=== PATIENT | female | born 1965 | race Caucasian/White ===

== ENCOUNTER → 2016-10-17 | Outpatient (CLI) | payer OTHER ==
[~2016-10-17] MED LIST: ALEN5SOL IM; ASPI81TA28 PO; ATV5 PO; CIPR1TAB11 PO; CITA10TA4 PO; CLOB-77 TOP; DIPH-416 PO; DIVA500T5 PO; DIVA500T59 PO; DLN100 PO; DTRSR5 PO; METR-163 PO; ONDA4TAB65 PO; OXYB5TAB74 PO; PRLSR20 PO; VNTHFA/IN INH
[2016-10-17 17:23] LABS: HEMATOCRIT 44.5 % (37-47); MEAN CELL VOLUME 91.6 fL (80-100); MEAN CORPUSCULAR HEMOGLOBIN 31.7 pg (25-34); MEAN CORPUSCULAR HGB CONC 34.6 g/dl (32-36); PLATELET COUNT 517 K/uL (130-400); RED BLOOD COUNT 4.86 M/uL (4.2-5.4); WHITE BLOOD COUNT 14.43 K/uL (4.8-10.8)
[2016-10-17 17:47] LABS: ALT/SGPT 15 U/L (12-78); BLOOD UREA NITROGEN 15 mg/dl (7-18); BUN/CREATININE RATIO 22.8 (10-20); CALCIUM 9.6 mg/dl (8.5-10.1); CARBON DIOXIDE 24 mmol/L (21-32); CHLORIDE 108 mmol/L (98-107); CREATININE 0.67 mg/dl (0.60-1.20); GLUCOSE 78 mg/dl (70-99); POTASSIUM 3.9 mmol/L (3.5-5.1); SODIUM 141 mmol/L (136-145)
[2016-10-17 17:50] LABS: ALKALINE PHOSPHATASE 133 U/L (45-117); AST/SGOT 12 U/L (15-37)
[2016-10-17 17:53] LABS: BASO ABS # 0.13 K/uL (0-0.2); BASOPHIL % 0.9 %; COMPLETE YES; ECHINOCYTES 1+; LYMPH ABS # 2.38 K/uL (1.2-3.4); LYMPHOCYTE % 16.5 %; NEUTROPHILS % 58.8 %; VARIANT LYM ABS # 3.17 K/uL
[2016-10-19 16:33] LABS: MICROSOMAL AB 2 IU/ML (<9)
== END | disposition home or self-care (01) ==
LOC: C.LABBFT 11:48
PROVIDERS: ATTEND Nurse Practitioner
DX: R74.0 Nonspecific elevation of levels of transaminase and lactic acid dehydrogenase [LDH] (principal); D72.829 Elevated white blood cell count, unspecified; E07.9 Disorder of thyroid, unspecified; G40.909 Epilepsy, unspecified, not intractable, without status epilepticus

== ENCOUNTER → 2016-12-20 | Outpatient (CLI) | payer OTHER ==
[2016-12-20 16:05] LABS: THYROID STIMULATING HORMONE 0.405 uIu/ml (0.300-4.500)
== END | disposition home or self-care (01) ==
LOC: C.LAB1850 14:41
PROVIDERS: ATTEND Internal Medicine Endocrinology, Diabetes & Metabolism
DX: E05.90 Thyrotoxicosis, unspecified without thyrotoxic crisis or storm (principal)

== ENCOUNTER → 2016-12-31 | Outpatient (CLI) | payer OTHER ==
[~2016-12-31] MED LIST changes: +DTR/5 PO; -OXYB5TAB74 PO
--- NOTE | 2016-12-31 14:01 | MAMMOGRAPHY REPORT ---
BILATERAL DIGITAL DIAGNOSTIC MAMMOGRAM TOMOSYNTHESIS WITH CAD AND TARGETED BILATERAL ULTRASOUND: 12/31 CLINICAL HISTORY: 51-year-old woman of presents with a lump in her left nipple. She also reports he r left breast was painful. Her doctor felt a second lump in the upper outer quadrant of the left br east. No skin changes, nipple discharge or family history of breast cancer. TECHNIQUE: Bilateral breast tomosynthesis in addition to standard 2D mammography was performed. Curr ent study was also evaluated with a Computer Aided Detection (CAD) system. COMPARISON: Comparison is made to exam dated: 11/05/2006. BREAST COMPOSITION: There are scattered areas of fibroglandular density in both breasts. FINDINGS: Two triangular skin palpable markers overlie the left breast in the upper outer middle to posterior breast, and anterior lower outer periareolar left breast. The parenchymal pattern of the left breast is similar to the 2007 mammogram. No new suspicious mass, developing asymmetry, archite ctural distortion or suspicious calcifications are identified. There is an 8 mm nodular asymmetry in the lateral anterior right breast on tomosynthesis slice 1416 which could represent normal overlapping tissue. The pattern on the 2-D view appears somewhat jeffrey lar to the 2007 mammogram. However, further characterization with ultrasound was performed. No oth er suspicious mass, architectural distortion or cluster of microcalcifications is seen in the right breast. Targeted ultrasound was performed in the left breast over the nipple and in the upper outer quadrant approximate 1:00 axis, 8 cm from the nipple, in the areas of lumps described by the patient. The l eft nipple has a sonographically normal appearance without definite mass within the nipple or in the retroareolar breast. In the left 1:00 breast, 8 cm from the nipple, there is normal fatty tissue w ithout a discrete solid or cystic mass. Within the right lateral breast, there is mild benign duct ectasia in the 9:00 periareolar and retroareolar breast. No evidence of a suspicious solid or cysti c mass. IMPRESSION: ACR BI-RADS CATEGORY 2: BENIGN, TARGETED ULTRASOUND ACR BI-RADS CATEGORY 2: BENIGN 1. There is no suspicious mammographic or targeted sonographic abnormality or evidence of malignanc y within the left nipple and upper outer quadrant of the left breast, in the areas of tenderness and lumps pointed out by the patient. Therefore, clinical follow-up is recommended, as biopsy of a cli nically suspicious mass should not be precluded by negative imaging. 2. An 8 mm nodular asymmetry in the lateral right breast has no suspicious sonographic correlate an d most likely represented normal fibroglandular tissue. 3. Would recommend routine screening mammography in one year, unless there is a new palpable concer n. These results and recommendations were discussed with the patient at the time of the exam. Approximately 10% of breast cancers are not detected with mammography. A negative mammographic repor t should not delay biopsy if a clinically suggestive mass is present. Jaci Aj M.D. ay/:12/31/2016 09:53:01 Decision Analyst: Maria A Joe, [facility] letter sent: Normal 1/2 BI-RADS Code: ACR BI-RADS Category 2: Benign Ultrasound BI-RADS: ACR BI-RADS Category 2: Benign
== END | disposition home or self-care (01) ==
LOC: C.MAMM 08:54
PROVIDERS: ATTEND Nurse Practitioner
DX: N63 Unspecified lump in breast (principal); N64.89 Other specified disorders of breast

== ENCOUNTER → 2017-05-07 | Outpatient (CLI) | payer OTHER ==
[~2017-05-07] MED LIST changes: -DTR/5 PO; +OXYB5TAB74 PO
== END | disposition home or self-care (01) ==
LOC: C.MAMM 08:55
PROVIDERS: ATTEND Internal Medicine
DX: Z78.0 Asymptomatic menopausal state (principal)

== ENCOUNTER → 2017-05-15 | Outpatient (CLI) | payer OTHER ==
[~2017-05-15] MED LIST changes: +OPTIRAY 320 IV PRN
[2017-05-15 16:42] LABS: HEMATOCRIT 43.2 % (37-47); MEAN CELL VOLUME 93.1 fL (80-100); MEAN CORPUSCULAR HEMOGLOBIN 30.4 pg (25-34); MEAN CORPUSCULAR HGB CONC 32.6 g/dl (32-36); MEAN PLATELET VOLUME 10.7 fL (7.4-10.4); PLATELET COUNT 354 K/uL (130-400); RED BLOOD COUNT 4.64 M/uL (4.2-5.4); WHITE BLOOD COUNT 14.61 K/uL (4.8-10.8)
[2017-05-15 16:45] LABS: URINE APPEARANCE CLEAR (CLEAR); URINE COLOR DK YELLOW; URINE EPITHELIAL CELL AUTO >30 /lpf (0-5); URINE NITRITE POS (NEG); URINE PH 5.5 (4.5-7.5); URINE SPECIFIC GRAVITY 1.035 (1.000-1.030); UROBILINOGEN NEG (NEG); ZZUR CULT IF INDIC CLEAN CATCH YES
[2017-05-15 16:46] LABS: MANUAL MICROSCOPIC REQUIRED? NO; REVIEW REQ? NO
[2017-05-15 16:47] LABS: URINE BILIRUBIN NEG (NEG)
[2017-05-15 17:12] LABS: ALT/SGPT 881 U/L (12-78); BLOOD UREA NITROGEN 15 mg/dl (7-18); BUN/CREATININE RATIO 26.2 (10-20); CALCIUM 8.4 mg/dl (8.5-10.1); CARBON DIOXIDE 28 mmol/L (21-32); CHLORIDE 109 mmol/L (98-107); CHOLESTEROL 181 mg/dl (0-200); CREATININE 0.58 mg/dl (0.60-1.20); GLUCOSE 76 mg/dl (70-99); POTASSIUM 3.8 mmol/L (3.5-5.1); SODIUM 142 mmol/L (136-145); TRIGLYCERIDES 133 mg/dl (0-150); VERY LOW DENSITY LIPOPROT CALC 27 mg/dl
[2017-05-15 17:21] LABS: ALB/GLOB RATIO 0.9 (0.9-2); ALKALINE PHOSPHATASE 151 U/L (45-117); AST/SGOT 639 U/L (15-37); CHOLESTEROL/HDL RATIO 6.2; HDL CHOLESTEROL 29 mg/dl; LDL CHOLESTEROL CALCULATED 125 mg/dl; THYROID STIMULATING HORMONE 0.493 uIu/ml (0.300-4.500)
[2017-05-15 17:32] LABS: BASO % 0.8 %; BASO ABS # 0.12 K/uL (0-0.2); COMPLETE YES; EOS % 8.4 %; HOWELL-JOLLY BODIES OCCASIONAL; IG% 0.2 %; LARGE PLATELETS 1+; LYMPH % 37.2 %; LYMPH ABS # 5.43 K/uL (1.2-3.4); NEUT % 41.4 %
--- NOTE | 2017-05-15 18:43 | DIAGNOSTIC IMAGING REPORT ---
ABDOMEN AND PELVIS CT WITH AND WITHOUT IV CONTRAST, UROGRAM PROTOCOL CT DOSE: 1974.30 mGycm HISTORY: GROSS HEMATURIA TECHNIQUE: Multiaxial CT images of the abdomen and pelvis were performed both before and after the use of intravenous contrast to evaluate the urinary system. Maximal intensity projection images were performed at the workstation by the radiologist. A dose lowering technique was utilized adhering to the principles of ALARA. COMPARISON STUDY: Abdomen and pelvis CT 08/21/2016. FINDINGS: No renal or ureteral calculi. No hydronephrosis. No suspicious filling defects seen within the bilateral renal collecting systems, ureters, or bladder. Of note, the bladder is essentially nonopacified. There is a 1.6 cm cyst within the left kidney. The lung bases are essentially clear. No suspicious lytic or blastic osseous lesions. The liver, adrenal glands, and pancreas are unremarkable. No retroperitoneal lymphadenopathy. Prior splenectomy, cholecystectomy, and hysterectomy. No pelvic free fluid. No bowel wall thickening or obstruction. The appendix is surgically absent. IMPRESSION: 1. No renal or ureteral stones. No hydronephrosis. 2. No suspicious filling defects seen within the opacified bilateral renal collecting systems, ureters, or bladder. 3. Postoperative changes as described above. Electronically signed by: Isidoro Sinclair M.D. 05/15/2017 6:42 PM Dictated Date/Time: 05/15/2017 6:34 PM
== END | disposition home or self-care (01) ==
LOC: C.CTS 16:19
PROVIDERS: ATTEND Internal Medicine
DX: R30.0 Dysuria (principal); D72.829 Elevated white blood cell count, unspecified; E05.90 Thyrotoxicosis, unspecified without thyrotoxic crisis or storm; G40.909 Epilepsy, unspecified, not intractable, without status epilepticus; E78.5 Hyperlipidemia, unspecified; R31.0 Gross hematuria; M81.0 Age-related osteoporosis without current pathological fracture

== ENCOUNTER 2017-05-16 11:06 | Inpatient (IN) | payer OTHER ==
[~2017-05-16] VITALS: Ht 170.2 cm; Wt 92.0 kg
[~2017-05-16 11:06] MED LIST changes: -ALEN5SOL IM; -DIVA500T5 PO; -DIVA500T59 PO; -DTRSR5 PO; -ONDA4TAB65 PO; -OPTIRAY 320 IV PRN
[2017-05-16 11:46] LABS: MEAN CELL VOLUME 91.7 fL (80-100); MEAN CORPUSCULAR HEMOGLOBIN 31.9 pg (25-34); MEAN CORPUSCULAR HGB CONC 34.8 g/dl (32-36); MEAN PLATELET VOLUME 10.9 fL (7.4-10.4); PLATELET COUNT 335 K/uL (130-400); WHITE BLOOD COUNT 14.63 K/uL (4.8-10.8)
[2017-05-16 12:05] LABS: BUN/CREATININE RATIO 29.4 (10-20); CALCIUM 8.9 mg/dl (8.5-10.1); CREATININE 0.5 mg/dl (0.60-1.20); POTASSIUM 4.3 mmol/L (3.5-5.1)
[2017-05-16 12:08] LABS: ALB/GLOB RATIO 0.8 (0.9-2)
--- NOTE | 2017-05-16 12:18 | EMERGENCY ROOM VISIT NOTE ---
History Report prepared by Carmelo: Emi Elizondo Under the Supervision of: Dr. Jasmeet Ortiz M.D. First contact with patient: 11:36 Chief Complaint: ABNORMAL LABS Stated Complaint: HIGH LIVER History of Present Illness The patient is a 52 year old female who presents to the Emergency Room with complaints of abnormal lab results. The patient reports that her liver enzymes are high and that they are higher today than they were yesterday. She also reports right flank pain and blood in her urine. The patient has a history of a splenectomy and cholecystectomy. Source of History: patient Onset: today Position: other (global) Quality: other (abnormal lab results ) Timing: constant Associated Symptoms: + abdominal pain (right flank pain ), + urinary symptoms (blood in urine ) Review of Systems See HPI for pertinent positives & negatives. A total of 10 systems reviewed and were otherwise negative. Past Medical & Surgical Medical Problems: (1) Intractable nausea and vomiting (2) Leukocytosis (3) Transaminitis Surgical Problems: (1) History of appendectomy (2) History of cholecystectomy (3) History of splenectomy Family History Cancer Diabetes mellitus Gallbladder disease Heart disease Social History Smoking Status: Current Every Day Smoker Alcohol Use: occasionally Drug Use: none Marital Status: single Housing Status: lives with family Occupation Status: unemployed Current/Historical Medications Scheduled Alendronate Sodium (Alendronate Sodium), 70 MG IM WK Aspirin (Aspirin Ec), 81 MG PO DAILY Citalopram Hydrobromide (Citalopram Hydrobromide), 10 MG PO DAILY Clobetasol Propionate (Temovate), 1 APPLN TOP BID Divalproex Sodium (Depakote Delay Rel), 500 MG PO BID Omeprazole (Prilosec), 20 MG PO DAILY Oxybutynin Chloride (Oxybutynin Chloride ER), 5 MG PO HS Scheduled PRN Albuterol Hfa (Ventolin Hfa), 2-4 PUFFS INH Q4H PRN for SOB/Wheezing Diphenoxylate/Atropine (Lomotil), 1 TAB PO QID PRN for Diarrhea Lorazepam (Ativan *), 0.5 MG PO DAILY PRN for Anxiety Ondansetron Hcl (Zofran), 1 TAB PO Q6H PRN for Nausea Allergies Coded Allergies: Oxycodone (Verified Allergy, Mild, 08/22/16) Physical Exam Vital Signs Date Time Temp Pulse Resp B/P (MAP) Pulse Ox O2 Delivery O2 Flow Rate FiO2 05/16/17 14:06 62 16 89/47 94 Room Air 79/50 05/16/17 12:33 73 16 94/66 95 Room Air 05/16/17 11:12 36.7 76 16 108/75 93 Room Air Physical Exam GENERAL: Patient is a healthy-appearing well-nourished female HEAD: Normocephalic atraumatic EYES: Ocular movements intact pupils equal and react to light OROPHARYNX mucous membranes are moist no exudates present no erythema or edema present NECK: Supple no nuchal rigidity CHEST: Good equal expansion LUNGS: Clear and equal to auscultation CARDIAC: Normal S1 and S2 ABDOMEN: RUQ tenderness. BACK: No CVA tenderness EXTREMITIES: No pain upon palpation normal muscle strength in all groups no clubbing cyanosis or edema NEURO: Patient is following commands and answering questions appropriately. Alert and oriented x3 Cranial Nerves 2-12 grossly intact Medical Decision & Procedures Laboratory Results 05/16/17 11:30 Test 05/16/17 11:30 05/16/17 13:59 Neutrophils % (Manual) 36.8 % Lymphocytes % (Manual) 14.9 % Variant Lymphocytes % (manual) 22.8 % Monocytes % (Manual) 14.0 % Eosinophils % (Manual) 8.8 % Basophils % (Manual) 1.8 % Myelocytes % 0.9 % Neutrophils # (Manual) 5.38 K/uL (1.4-6.5) Total Absolute Neutrophils 5.38 K/uL (1.4-6.5) Lymphocytes # (Manual) 2.18 K/uL (1.2-3.4) Absolute Variant Lymphocytes 3.34 K/uL Total Absolute Lymphocytes 5.52 K/uL (1.2-3.4) Monocytes # (Manual) 2.05 K/uL (0.11-0.59) Eosinophils # (Manual) 1.29 K/uL (0-0.5) Basophils # (Manual) 0.26 K/uL (0-0.2) Myelocytes # 0.13 K/uL (0-0) Toxic Vacuolation 1+ Shirley-[place] Bodies 1+ Prothrombin Time 11.0 SECONDS (9.0-12.0) Prothromb Time International Ratio 1.0 (0.9-1.1) Anion Gap 4.0 mmol/L (3-11) Est Creatinine Clear Calc Drug Dose 149.2 ml/min Estimated GFR () 129.9 Estimated GFR (Non- 112.1 BUN/Creatinine Ratio 29.4 (10-20) Calcium Level 8.9 mg/dl (8.5-10.1) Ferritin 1174.3 ng/ml (8.0-388.0) Total Bilirubin 0.7 mg/dl (0.2-1) Aspartate Amino Transf (AST/SGOT) 795 U/L (15-37) Alanine Aminotransferase (ALT/SGPT) 971 U/L (12-78) Alkaline Phosphatase 171 U/L (45-117) Total Protein 7.3 gm/dl (6.4-8.2) Albumin 3.2 gm/dl (3.4-5.0) Globulin 4.1 gm/dl (2.5-4.0) Albumin/Globulin Ratio 0.8 (0.9-2) Amylase Level 49 U/L (25-115) Lipase 110 U/L (73-393) Hepatitis C Antibody NEG (NEG) Valproic Acid (Depakene) Level 90 mcg/ml (50-100) Labs reviewed by ED physician. Medications Administered Medications (Trade) Dose Ordered Sig/Wilma Route Start Time Stop Time Status Last Admin Dose Admin Sodium Chloride 1,000 ml @ 999 mls/hr Q1H1M STAT IV 05/16/17 12:25 05/16/17 13:25 DC 05/16/17 12:31 999 MLS/HR Hydromorphone HCl (Dilaudid Inj) 1 mg NOW STAT IV 05/16/17 12:25 05/16/17 12:27 DC 05/16/17 12:32 1 MG Ondansetron HCl (Zofran Inj) 4 mg NOW STAT IV 05/16/17 12:25 05/16/17 12:27 DC 05/16/17 12:31 4 MG ED Course 1215: Past medical records reviewed. The patient was evaluated in room B6. A complete history and physical examination was performed. 1225: Ordered Zofran Inj 4 mg IV, Dilaudid Inj 1 mg IV, Sodium Chloride 1,000 ml @ 999 mls/hr IV. 1308: Upon reexamination the patient is resting. I discussed results and treatment plan with the patient. She verbalizes agreement and understanding. [facility] The patient will be evaluated for further management. Medical Decision Differential diagnosis: Etiologies such as appendicitis, diverticulitis, PUD, biliary pathology, UTI, pancreatitis, obstruction, mesenteric ischemia, aortic pathology, infections, inflammatory bowel disease, renal colic, as well as others were entertained. This is a 52-year-old female that presents emergency Department with elevated liver enzymes. The patient has similar incident last July. I will note her enzymes or even higher today than yesterday. She was sent in by her primary care physician's office. She was seen by gastroenterology last July therefore I consulted with them who asked that the patient be admitted. They will also get an MRI of the liver. An IV was established, the patient was given normal saline bolus, Dilaudid. I did discuss the case with the hospitalist service who agreed to admit the patient. Patient was in agreement with the treatment plan. Medication Reconcilliation Current Medication List: was personally reviewed by me Blood Pressure Screening Patient's blood pressure: Normal blood pressure Consults Time Called: 1245 Consulting Physician: Dr. Garza [facility] Returned Call: 1308 Upon reexamination the patient is resting. I discussed results and treatment plan with the patient. She verbalizes agreement and understanding. [facility] The patient will be evaluated for further management. Impression Primary Impression: Acute hepatitis Scribe Attestation The scribe's documentation has been prepared under my direction and personally reviewed by me in its entirety. I confirm that the note above accurately reflects all work, treatment, procedures, and medical decision making performed by me. Departure Information Dispostion Being Evaluated By Hospitalist Referrals Tad Holt M.D. (PCP) Patient Instructions [facility]
[2017-05-16 12:19] LABS: BASO ABS # 0.26 K/uL (0-0.2); BASOPHIL % 1.8 %; COMPLETE YES; EOSINOPHIL % 8.8 %; HOWELL-JOLLY BODIES 1+; LYMPH ABS # 2.18 K/uL (1.2-3.4); LYMPHOCYTE % 14.9 %; MYELOCYTE % 0.9 %; NEUTROPHILS % 36.8 %; VACUOLIZATION 1+; VARIANT LYM ABS # 3.34 K/uL; VARIANT LYMPHOCYTE % 22.8 %
[2017-05-16] MEDS ORDERED: ONDANSETRON INJ 2 MG/ML 2 ML VIAL IV STA (12:25)
[2017-05-16] MEDS ORDERED: HYDROmorphone INJ 1 MG/ML SYR IV STA (12:25)
[2017-05-16] MEDS ORDERED: SODIUM CHLORIDE 0.9% 1000ML 1,000 ML IV STA ×2 (12:25→14:15)
--- NOTE | 2017-05-16 13:37 | Gastrointestinal Consultation ---
Gastrointestinal Consultation Date of Consultation: May 16, 2017 Attending Physician: Jasmeet Ortiz Consulting Physician: Parul Dang Reason for Consultation: Elevated LFTs History of Present Illness Patient is a 52 year old female referred to the ED by her PCP for elevated LFTs. She presented to her PCP's office yesterday for c/o hematuria, RUQ abd pain though the abd pain had been present per years per pt's report. She also c/ o diarrhea recently. Urine culture grew gram negative bacilli. She had CT abd/ pelvis done which was grossly normal. Labs however showed leukocytosis WBC 14.6 , LFTs are elevated: Tbili normal, AST 795, ALT 971, AP 171. Amylase and Lipase normal. She was thus sent to ED for further w/u. She had previously seen by our GI team last July for elevated LFTs. At that time had abd pain, n/v, diarrhea symptoms and elevated LFTs suspected to be caused by viral hepatitis though CMV, EBV, Parvo, HSV are all normal. She had refused to stay in hospital longer and was eventually discharged to f/u w her PCP. LFTs eventually normalized in September. She said a month ago her Dilantin was changed to Depakote for better neurological symptoms - though no seizures x 9 yrs she was having headaches until Dilantin DC'd. No other new meds. She was prescribed Cipro/Flagyl for the UTI but hasn't started. She denies any dietary changes, sick contact, travel, regular uses of APAP. Smokes 1.5 PPD, denies any marijuana, or other illicit drugs, ETOH abuses. No known family hx of liver diseases or autoimmune diseases. 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 Cholecystectomy Appendectomy Family History Cancer Diabetes mellitus Gallbladder disease Heart disease Social History Smoking Status: Current Every Day Smoker Alcohol Use: occasionally Drug Use: none Marital Status: single Housing Status: lives with family Occupation Status: unemployed Allergies Coded Allergies: Oxycodone (Verified Allergy, Mild, 08/22/16) Current Medications Home Meds and Scripts Medications Dose Route/Sig Max Daily Dose Days Date Category Dose Instructions Flagyl (Metronidazole) 500 Mg Tab 500 Mg PO BID 08/22/16 Reported Cipro (Ciprofloxacin) 250 Mg Tab 500 Mg PO BID 08/22/16 Reported Temovate (Clobetasol Propionate) 0.05 % Cre 1 Appln TOP BID 08/21/16 Reported APPLY TO ARMS AND LEGS, NEEDED. Ventolin Hfa (Albuterol) 200 Puffs/69394 Mcg Aers 2-4 Puffs INH Q4H PRN 08/21/16 Reported Prilosec (Omeprazole) 20 Mg Capcr 20 Mg PO DAILY 08/21/16 Reported Lomotil (Diphenoxylate HCl/Atropine) Tab 1 Tab PO QID PRN 08/21/16 Reported Citalopram Hydrobromide 10 Mg Tab 10 Mg PO DAILY 08/21/16 Reported Aspirin Ec (Aspirin) 81 Mg Tab 81 Mg PO DAILY 08/21/16 Reported Ditropan (Oxybutynin Chloride) 5 Mg Tab 5 Mg PO HS 08/21/16 Reported Ativan * (Lorazepam) 0.5 Mg Tab 0.5 Mg PO DAILY PRN 10/10/11 Reported Dilantin * (Phenytoin Sodium) 100 Mg Ercap 100 Mg PO 5XD 07/20/08 Reported Review of Systems Constitutional: No fever, No chills Respiratory: No cough, No shortness of breath Cardiac: No chest pain Abdomen: + pain (ruq), + diarrhea, No nausea, No vomiting, No GI bleeding Female : + hematuria Endo: No fatigue Skin: No rash, No itch, No jaundice Physical Exam Date Time Temp Pulse Resp B/P (MAP) Pulse Ox O2 Delivery O2 Flow Rate FiO2 05/16/17 12:33 73 16 94/66 95 Room Air 05/16/17 11:12 36.7 76 16 108/75 93 Room Air General Appearance: + obese Eyes: normal inspection, PERRL, EOMI Neck: supple, no JVD, trachea midline Respiratory/Chest: normal breath sounds, no respiratory distress, no accessory muscle use Cardiovascular: regular rate, rhythm, no gallop, no murmur Abdomen: normal bowel sounds, soft, + tenderness (ruq) Extremities: normal inspection, no pedal edema, no calf tenderness Neurologic/Psych: alert, normal mood/affect, oriented x 3 Skin: normal color, no jaundice, no rash Laboratory Results Last 24 Hours Test 05/16/17 11:30 05/16/17 13:08 White Blood Count 14.63 K/uL Red Blood Count 4.80 M/uL Hemoglobin 15.3 g/dL Hematocrit 44.0 % Mean Corpuscular Volume 91.7 fL Mean Corpuscular Hemoglobin 31.9 pg Mean Corpuscular Hemoglobin Concent 34.8 g/dl Platelet Count 335 K/uL Mean Platelet Volume 10.9 fL RDW Standard Deviation 50.7 fL RDW Coefficient of Variation 15.2 % Neutrophils % (Manual) 36.8 % Lymphocytes % (Manual) 14.9 % Variant Lymphocytes % (manual) 22.8 % Monocytes % (Manual) 14.0 % Eosinophils % (Manual) 8.8 % Basophils % (Manual) 1.8 % Myelocytes % 0.9 % Neutrophils # (Manual) 5.38 K/uL Total Absolute Neutrophils 5.38 K/uL Lymphocytes # (Manual) 2.18 K/uL Absolute Variant Lymphocytes 3.34 K/uL Total Absolute Lymphocytes 5.52 K/uL Monocytes # (Manual) 2.05 K/uL Eosinophils # (Manual) 1.29 K/uL Basophils # (Manual) 0.26 K/uL Myelocytes # 0.13 K/uL Toxic Vacuolation 1+ Shirley-[place] Bodies 1+ Sodium Level 139 mmol/L Potassium Level 4.3 mmol/L Chloride Level 108 mmol/L Carbon Dioxide Level 27 mmol/L Anion Gap 4.0 mmol/L Blood Urea Nitrogen 15 mg/dl Creatinine 0.50 mg/dl Est Creatinine Clear Calc Drug Dose 149.2 ml/min Estimated GFR () 129.9 Estimated GFR (Non- 112.1 BUN/Creatinine Ratio 29.4 Random Glucose 83 mg/dl Calcium Level 8.9 mg/dl Ferritin 1174.3 ng/ml Total Bilirubin 0.7 mg/dl Aspartate Amino Transf (AST/SGOT) 795 U/L Alanine Aminotransferase (ALT/SGPT) 971 U/L Alkaline Phosphatase 171 U/L Total Protein 7.3 gm/dl Albumin 3.2 gm/dl Globulin 4.1 gm/dl Albumin/Globulin Ratio 0.8 Amylase Level 49 U/L Lipase 110 U/L Hepatitis C Antibody NEG Impression Patient is a 52 year old female seen for elevated LFTs. Previously had been seen in July for same reason, suspected to have viral hepatitis though CMV, EBV, Parvo serologies negative. 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 She currently has UTI and diarrhea symptoms. Her Dilantin recently switched to Depakote for seizure control ? LFT elevation related to Depakote. Plan - Alpha 1 antitrypsin, ceruloplasmin, SERVANDO, AMA, Anti smooth muscle antibody, Acute hepatitis labs pending. will add Iron screen given elevated Ferritin 1174 , SPEP, celiac ab panel. - RUQ u/s - Stool cx and Cdiff given diarrhea. If negative may try Colestipol/Questran (? bile acid diarrhea given s/p cholecystectomy), Dicyclomine. - Avoid hepatotoxic meds. - Monitor LFTs. Attg addendum: I interviewed and examined pt, reviewed chart and labs. Pt admit with abnl LFT's, prv normal in September, and without prior h/o sig elevation. She recently began Depakote. Her recent onset depakote therapy suggests liver injury related to depakote therapy. Her eosinophilia may also suggest drug induced linver injury, although eosinophilia is not typical for depakote related liver injury. In addition to labs above, would check APAP levels, HCV RNA, ammonia, GGT. Hold depakote; if LFT's cont to rise or if ammonia elevated, will plan IV carnitine.
[2017-05-16] MEDS ORDERED: ACETAMINOPHEN 325 MG TAB PO PRN (14:00)
[2017-05-16] MEDS ORDERED: ALBUTEROL HFA 8 GM INHALER INH PRN (14:00)
[2017-05-16] MEDS ORDERED: ONDANSETRON INJ 2 MG/ML 2 ML VIAL IV PRN (14:00)
[2017-05-16] MEDS ORDERED: LORAZEPAM 0.5 MG TAB PO PRN (14:00)
[2017-05-16] MEDS ORDERED: ONDA4TAB65 PO (14:08)
[2017-05-16] MEDS ORDERED: ALEN5SOL IM (14:08)
[2017-05-16] MEDS ORDERED: DIVA500T59 PO (14:08)
[2017-05-16] MEDS ORDERED: NURSING VERBAL MED ORDER ONE (14:15)
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
[2017-05-16] MEDS ORDERED: DIVA500T5 PO (14:57)
[2017-05-16] MEDS ORDERED: DTRSR5 PO (14:57)
--- NOTE | 2017-05-16 14:58 | DIAGNOSTIC IMAGING REPORT ---
ULTRASOUND RIGHT UPPER QUADRANT ABDOMEN CLINICAL HISTORY: Elevated hepatic transaminases. COMPARISON STUDY: Abdominal CT dated 05/15/2017. TECHNIQUE: Real-time, grayscale, and color flow sonography of the right upper quadrant of the abdomen was performed. Images are reviewed in the transverse and longitudinal planes. FINDINGS: Liver: The liver is normal in size and echotexture. There is mild central intrahepatic biliary ductal dilatation. The main portal vein is patent. Gallbladder: The gallbladder is surgically absent. The common bile duct is dilated, measuring up to 1.2 cm in diameter. This is likely related to previous surgery. Pancreas: Not well visualized due to overlying bowel gas. Right kidney: Survey images of the right kidney demonstrate normal size and echotexture. There is no hydronephrosis. Ascites: None. IMPRESSION: 1. No acute sonographic abnormality is identified in the right upper quadrant noting status post cholecystectomy. 2. The liver is normal in size and echotexture. Electronically signed by: Cliff Bautista M.D. 05/16/2017 2:56 PM Dictated Date/Time: 05/16/2017 2:55 PM
[2017-05-16 16:30] VITALS: BP 92/60; PULSE 60; TEMP 36.4; O2SAT 94
[2017-05-16 17:09] VITALS: BP 92/60; PULSE 60; TEMP 36.4; Ht 170.2 cm; Wt 92.0 kg
[2017-05-16 17:57] LABS: URINE APPEARANCE CLOUDY (CLEAR); URINE COLOR ORANGE; URINE EPITHELIAL CELL AUTO >30 /lpf (0-5); URINE NITRITE POS (NEG); URINE PH 5.5 (4.5-7.5); URINE SPECIFIC GRAVITY 1.029 (1.000-1.030); UROBILINOGEN POS (NEG)
[2017-05-16 18:10] LABS: MANUAL MICROSCOPIC REQUIRED? NO; REVIEW REQ? YES; URINE BILIRUBIN NEG (NEG)
[2017-05-16] MEDS: DIVALPROEX SODIUM 500 MG DELAY RELEASE TAB PO SCH (22:06)
[2017-05-16] MEDS: OXYBUTYNIN CHLORIDE 5 MG TAB PO SCH (22:06)
[2017-05-17 06:13] LABS: BASO % 0.6 %; BASO ABS # 0.07 K/uL (0-0.2); COMPLETE YES; EOS % 10.7 %; HEMATOCRIT 42.1 % (37-47); IG% 0.2 %; LYMPH % 38.5 %; LYMPH ABS # 4.73 K/uL (1.2-3.4); MEAN CELL VOLUME 92.9 fL (80-100); MEAN CORPUSCULAR HGB CONC 34.4 g/dl (32-36); MEAN PLATELET VOLUME 10.8 fL (7.4-10.4); MONO % 10.4 %; NEUT % 39.6 %; PLATELET COUNT 323 K/uL (130-400); RED BLOOD COUNT 4.53 M/uL (4.2-5.4); WHITE BLOOD COUNT 12.27 K/uL (4.8-10.8)
[2017-05-17 06:48] LABS: TOTAL IRON BINDING CAPACITY 336 mcg/dl (250-450)
--- NOTE | 2017-05-17 07:14 | DIAGNOSTIC IMAGING REPORT ---
(RENAL)RETROPERITONEA COMP HISTORY: Hematuria gross hematuria COMPARISON: None. FINDINGS: Right kidney: Maximum dimension 12.6 cm. No evidence for hydronephrosis. Normal corticomedullary differentiation and cortical thickness. Left kidney: Maximum dimension 12.2 cm. No evidence for hydronephrosis. 1.5 cm upper pole cyst. Normal corticomedullary differentiation and cortical thickness. Bladder: No bladder wall thickening. The bilateral ureteral jets were identified. IMPRESSION: Small left renal upper pole cyst. Otherwise negative study The above report was generated using voice recognition software. It may contain grammatical, syntax or spelling errors. Electronically signed by: Saad Andrade M.D. 05/17/2017 7:12 AM Dictated Date/Time: 05/17/2017 7:03 AM
--- NOTE | 2017-05-17 07:25 | DIAGNOSTIC IMAGING REPORT ---
MRCP CLINICAL HISTORY: dilated CBD COMPARISON STUDY: CT scan dated 05/15/2017, biliary ultrasound dated 05/16/2017 FINDINGS: The gallbladder is surgically absent. The common bile duct measures 7 mm. This is not an unexpected finding in a postcholecystectomy patient. No ductal filling defects are visualized. There is no pancreatic ductal dilatation. There is a 17 mm left renal cyst. There is mild perinephric edema. IMPRESSION: 1. Surgically absent gallbladder 2. Mild biliary ductal prominence, a not unexpected finding in a postcholecystectomy patient 3. No pancreatic ductal dilatation 4. No ductal filling defects identified 5. 17 mm left renal cyst. Mild perinephric edema. Electronically signed by: Mayito Mazariegos M.D. 05/17/2017 7:23 AM Dictated Date/Time: 05/17/2017 7:20 AM
[2017-05-17 08:09] VITALS: BP 101/67; PULSE 59; TEMP 36.8; O2SAT 93
[2017-05-17] MEDS: PANTOprazole SOD 40 MG TAB PO SCH (08:23)
[2017-05-17] MEDS: CITALOPRAM 20 MG TAB PO SCH (08:23)
[2017-05-17] MEDS: DIVALPROEX SODIUM 500 MG DELAY RELEASE TAB PO SCH ×2 (08:23→20:40)
[2017-05-17] MEDS ORDERED: ASPIRIN 81 MG ECTAB PO SCH (09:00)
--- NOTE | 2017-05-17 10:54 | Gastroenterology Progress Note ---
Progress Note Date of Service: May 17, 2017 Subjective Pt evaluation today including: conversation w/ patient, physical exam, chart review, lab review, review of studies, review of inpatient medication list Ms. Alva is a 52 yr old female with a seizure disorder (recent change from dilantin to depakote) who was admitted yesterday with and abdominal pain (which resolved yesterday). Elevated LFTs, leukocytosis on admission (yesterday: WBC 14.6: Tbili normal, AST 795, ALT 971, AP 171.) slightly improved today: WBC 12.2 T Bili normal, AST 777, ALT 921, AP 229 Continues with hematuria and cx with > 100k gram neg. Hep B (-); C pending. HSV, Parvovirus, CMV (-) during a similar episode of transaminitis and pain in Jul 2016. US yesterday with 1.2mm bile duct. MRCP very early this morning with 7mmbile duct and no defects. Today pt feels well, asks to eat. Review of Systems Constitutional: No fever Respiratory: No cough Cardiac: No chest pain Abdomen: + pain, + nausea, + vomiting, No diarrhea, No constipation, No GI bleeding, No dysphagia, No odynophagia Female : No dysuria Neuro: No memory loss Psych: No depression symptoms Endo: + fatigue (mild) Skin: No rash, No jaundice Medications Current Inpatient Medications Medications (Trade) Dose Ordered Sig/Wilma Route Start Time Stop Time Status Last Admin Dose Admin Acetaminophen (Tylenol Tab) 650 mg Q4H PRN PO 05/16/17 14:00 06/15/17 13:59 Ondansetron HCl (Zofran Inj) 4 mg Q6H PRN IV 05/16/17 14:00 06/15/17 13:59 Albuterol (Ventolin Hfa Inhaler) use as directed Q4H PRN INH 05/16/17 14:00 06/15/17 13:59 Divalproex Sodium (Depakote Delay Rel Tab) 500 mg BID PO 05/16/17 21:00 06/15/17 20:59 05/17/17 08:23 500 MG Lorazepam (Ativan Tab) 0.5 mg DAILY PRN PO 05/16/17 14:00 06/15/17 13:59 Oxybutynin Chloride (Ditropan Tab) 5 mg HS PO 05/16/17 21:00 06/15/17 20:59 05/16/17 22:06 5 MG Citalopram Hydrobromide (celeXA TAB) 10 mg QAM PO 05/17/17 09:00 06/16/17 08:59 05/17/17 08:23 10 MG Pantoprazole Sodium (Protonix Tab) 40 mg QAM PO 05/17/17 09:00 06/16/17 08:59 05/17/17 08:23 40 MG Objective Vital Signs Date Time Temp Pulse Resp B/P (MAP) Pulse Ox O2 Delivery O2 Flow Rate FiO2 05/17/17 08:09 36.8 59 18 101/67 (78) 93 Room Air 05/17/17 08:00 Room Air 05/17/17 00:00 Room Air 05/16/17 20:00 Room Air 05/16/17 17:09 36.4 60 18 92/60 Room Air 05/16/17 16:30 36.4 60 18 92/60 (71) 94 Room Air 05/16/17 15:56 88 16 131/57 94 05/16/17 15:51 88 16 131/57 94 Room Air 05/16/17 14:06 62 16 89/47 94 Room Air 79/50 05/16/17 12:33 73 16 94/66 95 Room Air 05/16/17 11:12 36.7 76 16 108/75 93 Room Air Physical Exam General Appearance: no apparent distress ENT: pharynx normal Neck: no JVD Respiratory/Chest: lungs clear Cardiovascular: + systolic murmur (2-3/6 murmur loudest at the apex) Abdomen: non tender, soft Extremities: non-tender, no pedal edema Neurologic/Psych: alert, normal mood/affect, oriented x 3 Skin: no jaundice, no rash Laboratory Results Last 24 Hours Test 05/16/17 11:30 05/16/17 13:59 05/16/17 15:50 05/16/17 17:37 White Blood Count 14.63 K/uL Red Blood Count 4.80 M/uL Hemoglobin 15.3 g/dL Hematocrit 44.0 % Mean Corpuscular Volume 91.7 fL Mean Corpuscular Hemoglobin 31.9 pg Mean Corpuscular Hemoglobin Concent 34.8 g/dl Platelet Count 335 K/uL Mean Platelet Volume 10.9 fL RDW Standard Deviation 50.7 fL RDW Coefficient of Variation 15.2 % Neutrophils % (Manual) 36.8 % Lymphocytes % (Manual) 14.9 % Variant Lymphocytes % (manual) 22.8 % Monocytes % (Manual) 14.0 % Eosinophils % (Manual) 8.8 % Basophils % (Manual) 1.8 % Myelocytes % 0.9 % Neutrophils # (Manual) 5.38 K/uL Total Absolute Neutrophils 5.38 K/uL Lymphocytes # (Manual) 2.18 K/uL Absolute Variant Lymphocytes 3.34 K/uL Total Absolute Lymphocytes 5.52 K/uL Monocytes # (Manual) 2.05 K/uL Eosinophils # (Manual) 1.29 K/uL Basophils # (Manual) 0.26 K/uL Myelocytes # 0.13 K/uL Toxic Vacuolation 1+ [place] Bodies 1+ Prothrombin Time 11.0 SECONDS Prothromb Time International Ratio 1.0 Sodium Level 139 mmol/L Potassium Level 4.3 mmol/L Chloride Level 108 mmol/L Carbon Dioxide Level 27 mmol/L Anion Gap 4.0 mmol/L Blood Urea Nitrogen 15 mg/dl Creatinine 0.50 mg/dl Est Creatinine Clear Calc Drug Dose 149.2 ml/min Estimated GFR () 129.9 Estimated GFR (Non- 112.1 BUN/Creatinine Ratio 29.4 Random Glucose 83 mg/dl Calcium Level 8.9 mg/dl Ferritin 1174.3 ng/ml Total Bilirubin 0.7 mg/dl Aspartate Amino Transf (AST/SGOT) 795 U/L Alanine Aminotransferase (ALT/SGPT) 971 U/L Alkaline Phosphatase 171 U/L Total Protein 7.3 gm/dl Albumin 3.2 gm/dl Globulin 4.1 gm/dl Albumin/Globulin Ratio 0.8 Amylase Level 49 U/L Lipase 110 U/L Hepatitis C Antibody NEG Valproic Acid (Depakene) Level 90 mcg/ml Ammonia 37.0 umol/L Urine Color ORANGE Urine Appearance CLOUDY Urine pH 5.5 Urine Specific [place] 1.029 Urine Protein NEG Urine Glucose (UA) NEG Urine Ketones TRACE Urine Occult Blood 1+ Urine Nitrite POS Urine Bilirubin NEG Urine Urobilinogen POS Urine Leukocyte Esterase TRACE Urine WBC (Auto) 1-5 /hpf Urine RBC (Auto) 0-4 /hpf Urine Hyaline Casts (Auto) 0 /lpf Urine Epithelial Cells (Auto) >30 /lpf Urine Bacteria (Auto) 4+ Urine Pathogenic Casts /lpf Test 05/17/17 05:55 05/17/17 06:03 Iron Level 145 mcg/dl Total Iron Binding Capacity 336 mcg/dl Transferrin 275 mg/dl Transferrin % Saturation 38 % White Blood Count 12.27 K/uL Red Blood Count 4.53 M/uL Hemoglobin 14.5 g/dL Hematocrit 42.1 % Mean Corpuscular Volume 92.9 fL Mean Corpuscular Hemoglobin 32.0 pg Mean Corpuscular Hemoglobin Concent 34.4 g/dl Platelet Count 323 K/uL Mean Platelet Volume 10.8 fL Neutrophils (%) (Auto) 39.6 % Lymphocytes (%) (Auto) 38.5 % Monocytes (%) (Auto) 10.4 % Eosinophils (%) (Auto) 10.7 % Basophils (%) (Auto) 0.6 % Neutrophils # (Auto) 4.86 K/uL Lymphocytes # (Auto) 4.73 K/uL Monocytes # (Auto) 1.27 K/uL Eosinophils # (Auto) 1.31 K/uL Basophils # (Auto) 0.07 K/uL RDW Standard Deviation 52.5 fL RDW Coefficient of Variation 15.5 % Immature Granulocyte % (Auto) 0.2 % Immature Granulocyte # (Auto) 0.03 K/uL Total Bilirubin 0.9 mg/dl Direct Bilirubin 0.3 mg/dl Aspartate Amino Transf (AST/SGOT) 777 U/L Alanine Aminotransferase (ALT/SGPT) 921 U/L Alkaline Phosphatase 170 U/L Total Protein 6.4 gm/dl Albumin 2.9 gm/dl Assessment and Plan Ms. Alva is a 52 yr old female with RUQ pain (now resolved), nausea - continues , mild and transaminitis/leukocytosis, both slightly improved. Possible UTI with hematuria, cx >100k gram (-). Plan: 1. Daily LFTs. 2. Eventual EUS 3. Regular diet. Attg addendum: I interveiwed and examined pt, reviewed chart and labs. Pt without new complaint; she is hungry. Labs show stable/mildly improved LFTs. APAP level was not done; dilantin level is not toxic. She has a mild hyperammonemia, without clinic enceph. I suspect dilantin toxicity, although dynamic size of CBD diamater may suggest stone disease or SOD. I think it would be ok to delay carnitine therapy given very mild hyperammonemia. For now , will follow - recommended outpt EUS, but pt wishes to defer. She can be discharged if LFT's cont to improve tomorrow. Please notify us if she is discharged - she should have twice weekly monitoring of LFT's for a few weeks as outpt. ,
[2017-05-17] MEDS ORDERED: AMPICILLIN/SULBACTAM SOD INJ 3,000 MG in SODIUM CHLORIDE 0.9% 100ML 100 ML IV SCH (14:30)
[2017-05-17 15:07] VITALS: BP 95/54; PULSE 68; TEMP 37.1; O2SAT 95
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
[2017-05-17] MEDS: SULFAMETHOXAZOLE/TRIMETHOPRIM DS 800/160MG TAB PO SCH ×2 (16:00→22:35)
[2017-05-17] MEDS: OXYBUTYNIN CHLORIDE 5 MG TAB PO SCH (20:40)
[2017-05-18] VITALS: O2SAT 95
[2017-05-18 00:06] VITALS: BP 120/70; PULSE 55; TEMP 36.7; O2SAT 93
[2017-05-18 07:12] VITALS: BP 110/70; PULSE 66; TEMP 36.7; O2SAT 95
[2017-05-18 07:37] LABS: HEMATOCRIT 41.5 % (37-47); MEAN CORPUSCULAR HEMOGLOBIN 31.8 pg (25-34); MEAN CORPUSCULAR HGB CONC 34.9 g/dl (32-36); MEAN PLATELET VOLUME 11.2 fL (7.4-10.4); PLATELET COUNT 313 K/uL (130-400); RED BLOOD COUNT 4.56 M/uL (4.2-5.4); WHITE BLOOD COUNT 14.21 K/uL (4.8-10.8)
[2017-05-18] MEDS: SULFAMETHOXAZOLE/TRIMETHOPRIM DS 800/160MG TAB PO SCH ×2 (07:41→20:46)
[2017-05-18] MEDS: DIVALPROEX SODIUM 500 MG DELAY RELEASE TAB PO SCH ×2 (07:41→20:45)
[2017-05-18] MEDS: CITALOPRAM 20 MG TAB PO SCH (07:41)
[2017-05-18] MEDS: PANTOprazole SOD 40 MG TAB PO SCH (07:41)
[2017-05-18 08:01] LABS: BUN/CREATININE RATIO 18.5 (10-20); CALCIUM 8.9 mg/dl (8.5-10.1); CREATININE 0.66 mg/dl (0.60-1.20); POTASSIUM 4.2 mmol/L (3.5-5.1)
[2017-05-18 08:29] LABS: BASO % 0.5 %; BASO ABS # 0.07 K/uL (0-0.2); COMPLETE YES; EOS % 9.1 %; HOWELL-JOLLY BODIES 1+; IG% 0.4 %; LYMPH % 41.6 %; LYMPH ABS # 5.91 K/uL (1.2-3.4); NEUT % 36.4 %; POIKILOCYTOSIS PRESENT; TOXIC GRANULATION 1+
--- NOTE | 2017-05-18 11:07 | Gastroenterology Progress Note ---
Progress Note Date of Service: May 18, 2017 Subjective Pt evaluation today including: conversation w/ patient, conversation w/ family No complaints, feeling well, no issues. labs have increased a bit, no signs of liver decompensation Medications Current Inpatient Medications Medications (Trade) Dose Ordered Sig/Wilma Route Start Time Stop Time Status Last Admin Dose Admin Acetaminophen (Tylenol Tab) 650 mg Q4H PRN PO 05/16/17 14:00 06/15/17 13:59 Ondansetron HCl (Zofran Inj) 4 mg Q6H PRN IV 05/16/17 14:00 06/15/17 13:59 Albuterol (Ventolin Hfa Inhaler) use as directed Q4H PRN INH 05/16/17 14:00 06/15/17 13:59 Divalproex Sodium (Depakote Delay Rel Tab) 500 mg BID PO 05/16/17 21:00 06/15/17 20:59 05/18/17 07:41 500 MG Lorazepam (Ativan Tab) 0.5 mg DAILY PRN PO 05/16/17 14:00 06/15/17 13:59 Oxybutynin Chloride (Ditropan Tab) 5 mg HS PO 05/16/17 21:00 06/15/17 20:59 05/17/17 20:40 5 MG Citalopram Hydrobromide (celeXA TAB) 10 mg QAM PO 05/17/17 09:00 06/16/17 08:59 05/18/17 07:41 10 MG Pantoprazole Sodium (Protonix Tab) 40 mg QAM PO 05/17/17 09:00 06/16/17 08:59 05/18/17 07:41 40 MG Trimethoprim/ Sulfamethoxazole (Septra Ds 800/ 160MG Tab) 1 tab Q12 PO 05/17/17 16:00 05/27/17 15:59 05/18/17 07:41 1 TAB Objective Vital Signs Date Time Temp Pulse Resp B/P (MAP) Pulse Ox O2 Delivery O2 Flow Rate FiO2 05/18/17 08:00 Room Air 05/18/17 07:12 36.7 66 18 110/70 (83) 95 Room Air 05/18/17 00:06 36.7 55 16 120/70 (87) 93 Room Air 05/18/17 00:00 95 Room Air 05/17/17 20:20 Room Air 05/17/17 15:53 Room Air 05/17/17 15:07 37.1 68 18 95/54 (68) 95 Room Air Physical Exam General Appearance: no apparent distress Eyes: normal inspection ENT: normal ENT inspection Neck: supple Respiratory/Chest: chest non-tender, lungs clear Cardiovascular: regular rate, rhythm, no edema Abdomen: normal bowel sounds, non tender Extremities: normal range of motion, non-tender, normal inspection 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, no motor/sensory deficits Skin: normal color Laboratory Results Last 24 Hours Test 05/18/17 07:07 White Blood Count 14.21 K/uL Red Blood Count 4.56 M/uL Hemoglobin 14.5 g/dL Hematocrit 41.5 % Mean Corpuscular Volume 91.0 fL Mean Corpuscular Hemoglobin 31.8 pg Mean Corpuscular Hemoglobin Concent 34.9 g/dl Platelet Count 313 K/uL Mean Platelet Volume 11.2 fL Neutrophils (%) (Auto) 36.4 % Lymphocytes (%) (Auto) 41.6 % Monocytes (%) (Auto) 12.0 % Eosinophils (%) (Auto) 9.1 % Basophils (%) (Auto) 0.5 % Neutrophils # (Auto) 5.19 K/uL Lymphocytes # (Auto) 5.91 K/uL Monocytes # (Auto) 1.70 K/uL Eosinophils # (Auto) 1.29 K/uL Basophils # (Auto) 0.07 K/uL RDW Standard Deviation 50.6 fL RDW Coefficient of Variation 15.3 % Immature Granulocyte % (Auto) 0.4 % Immature Granulocyte # (Auto) 0.05 K/uL Toxic Granulation 1+ Poikilocytosis PRESENT [place] Bodies 1+ Sodium Level 139 mmol/L Potassium Level 4.2 mmol/L Chloride Level 106 mmol/L Carbon Dioxide Level 26 mmol/L Anion Gap 7.0 mmol/L Blood Urea Nitrogen 12 mg/dl Creatinine 0.66 mg/dl Est Creatinine Clear Calc Drug Dose 117.4 ml/min Estimated GFR () 118.5 Estimated GFR (Non- 102.3 BUN/Creatinine Ratio 18.5 Random Glucose 76 mg/dl Calcium Level 8.9 mg/dl Total Bilirubin 0.8 mg/dl Direct Bilirubin 0.2 mg/dl Aspartate Amino Transf (AST/SGOT) 803 U/L Alanine Aminotransferase (ALT/SGPT) 947 U/L Alkaline Phosphatase 175 U/L Total Protein 7.1 gm/dl Albumin 3.1 gm/dl Assessment and Plan 52 yr old female with presentation of acute hepatitis without ALI or PENITENTIARY, likely drug induced Plan: 1. No signs of liver decompensation. Likely culprit is Dilantin. If labs do not come down, may need liver bx. No role for steroids given no hyperbilirubinemia, but is continues then may need initiation. would not feel comfortable with D/C today, all autoimmune labs are pending, upon d/c she should have twice weekly monitoring of LFT's for a few weeks as outpt.
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
[2017-05-18 14:46] VITALS: BP 118/74; PULSE 61; TEMP 36.7; O2SAT 93
[2017-05-18] MEDS: OXYBUTYNIN CHLORIDE 5 MG TAB PO SCH (20:46)
[2017-05-19 00:13] VITALS: BP 123/78; PULSE 71; TEMP 36.7; O2SAT 91
[2017-05-19 05:49] LABS: HEMATOCRIT 43.4 % (37-47); MEAN CELL VOLUME 91.8 fL (80-100); MEAN CORPUSCULAR HEMOGLOBIN 31.9 pg (25-34); MEAN CORPUSCULAR HGB CONC 34.8 g/dl (32-36); MEAN PLATELET VOLUME 11.1 fL (7.4-10.4); PLATELET COUNT 312 K/uL (130-400); RED BLOOD COUNT 4.73 M/uL (4.2-5.4); WHITE BLOOD COUNT 13.52 K/uL (4.8-10.8)
[2017-05-19 06:17] LABS: BASO % 0.7 %; BASO ABS # 0.09 K/uL (0-0.2); COMPLETE YES; ECHINOCYTES 1+; EOS % 8.8 %; HOWELL-JOLLY BODIES 1+; IG% 0.3 %; LYMPH % 37.9 %; LYMPH ABS # 5.12 K/uL (1.2-3.4); MONO % 12.9 %; NEUT % 39.4 %; VACUOLIZATION 1+
[2017-05-19 07:35] VITALS: BP 94/64; PULSE 62; TEMP 36.6; O2SAT 93
[2017-05-19] MEDS: SULFAMETHOXAZOLE/TRIMETHOPRIM DS 800/160MG TAB PO SCH (07:51)
[2017-05-19] MEDS: CITALOPRAM 20 MG TAB PO SCH (07:51)
[2017-05-19] MEDS: PANTOprazole SOD 40 MG TAB PO SCH (07:51)
[2017-05-19] MEDS: DIVALPROEX SODIUM 500 MG DELAY RELEASE TAB PO SCH (07:51)
--- NOTE | 2017-05-19 08:57 | Gastroenterology Progress Note ---
Progress Note Date of Service: May 19, 2017 Subjective Pt evaluation today including: conversation w/ patient No complaints Medications Current Inpatient Medications Medications (Trade) Dose Ordered Sig/Wilma Route Start Time Stop Time Status Last Admin Dose Admin Acetaminophen (Tylenol Tab) 650 mg Q4H PRN PO 05/16/17 14:00 06/15/17 13:59 Ondansetron HCl (Zofran Inj) 4 mg Q6H PRN IV 05/16/17 14:00 06/15/17 13:59 Albuterol (Ventolin Hfa Inhaler) use as directed Q4H PRN INH 05/16/17 14:00 06/15/17 13:59 Divalproex Sodium (Depakote Delay Rel Tab) 500 mg BID PO 05/16/17 21:00 06/15/17 20:59 05/19/17 07:51 500 MG Lorazepam (Ativan Tab) 0.5 mg DAILY PRN PO 05/16/17 14:00 06/15/17 13:59 Oxybutynin Chloride (Ditropan Tab) 5 mg HS PO 05/16/17 21:00 06/15/17 20:59 05/18/17 20:46 5 MG Citalopram Hydrobromide (celeXA TAB) 10 mg QAM PO 05/17/17 09:00 06/16/17 08:59 05/19/17 07:51 10 MG Pantoprazole Sodium (Protonix Tab) 40 mg QAM PO 05/17/17 09:00 06/16/17 08:59 05/19/17 07:51 40 MG Trimethoprim/ Sulfamethoxazole (Septra Ds 800/ 160MG Tab) 1 tab Q12 PO 05/17/17 16:00 05/27/17 15:59 05/19/17 07:51 1 TAB Objective Vital Signs Date Time Temp Pulse Resp B/P (MAP) Pulse Ox O2 Delivery O2 Flow Rate FiO2 05/19/17 07:35 36.6 62 18 94/64 (74) 93 05/19/17 00:13 36.7 71 20 123/78 (93) 91 Room Air 05/19/17 00:00 Room Air 05/18/17 20:00 Room Air 05/18/17 15:32 Room Air 05/18/17 14:46 36.7 61 18 118/74 (89) 93 Physical Exam General Appearance: WD/WN, no apparent distress Respiratory/Chest: chest non-tender, lungs clear, normal breath sounds Cardiovascular: regular rate, rhythm, no edema, no gallop Abdomen: normal bowel sounds, non tender, soft, no organomegaly Extremities: normal range of motion, non-tender 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, no motor/sensory deficits Laboratory Results Last 24 Hours Test 05/19/17 05:28 05/19/17 08:21 White Blood Count 13.52 K/uL Red Blood Count 4.73 M/uL Hemoglobin 15.1 g/dL Hematocrit 43.4 % Mean Corpuscular Volume 91.8 fL Mean Corpuscular Hemoglobin 31.9 pg Mean Corpuscular Hemoglobin Concent 34.8 g/dl Platelet Count 312 K/uL Mean Platelet Volume 11.1 fL Neutrophils (%) (Auto) 39.4 % Lymphocytes (%) (Auto) 37.9 % Monocytes (%) (Auto) 12.9 % Eosinophils (%) (Auto) 8.8 % Basophils (%) (Auto) 0.7 % Neutrophils # (Auto) 5.34 K/uL Lymphocytes # (Auto) 5.12 K/uL Monocytes # (Auto) 1.74 K/uL Eosinophils # (Auto) 1.19 K/uL Basophils # (Auto) 0.09 K/uL RDW Standard Deviation 50.9 fL RDW Coefficient of Variation 15.2 % Immature Granulocyte % (Auto) 0.3 % Immature Granulocyte # (Auto) 0.04 K/uL Nucleated RBC Absolute Count (auto) 0.08 K/uL Nucleated Red Blood Cells % 0.6 % Toxic Vacuolation 1+ [place] Bodies 1+ Echinocytes 1+ Total Bilirubin 0.8 mg/dl Direct Bilirubin 0.2 mg/dl Aspartate Amino Transf (AST/SGOT) 908 U/L Alanine Aminotransferase (ALT/SGPT) 1051 U/L Alkaline Phosphatase 189 U/L Total Protein 7.0 gm/dl Albumin 3.1 gm/dl Assessment and Plan 52 yr old female with presentation of acute hepatitis without ALI or KATIE, likely drug induced Plan: 1. No signs of liver decompensation. Likely culprit is Dilantin. Labs have increased in spite of holding medication, not entirely atypical of DILI, Would initiate prednisone today, she states she is allergic, could try solumedrol 20 q 12 while here, but wants to leave AMS. I would follow labs, no clear role for Mucomyst unless INR is 1.1 today. Still would not feel comfortable with D/C today, all autoimmune labs are pending , upon d/c she should have twice weekly monitoring of LFT's for a few weeks as outpt. Discussed that adamantly would not leave AMA today
[2017-05-19 09:04] LABS: INR 1.1 (0.9-1.1); PROTHROMBIN TIME (PATIENT) 11.5 SECONDS (9.0-12.0)
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
[2017-05-20 11:40] LABS: HEPATITIS C VIRAL RNA BY PCR <15 NOT DETECTED IU/ML (<15); HEPATITIS C VIRAL RNA(LOG) PCR <1.18 NOT DETECTED LOG IU/ML (<1.18)
[2017-05-21 09:09] LABS: ALPHA-1-ANTITRYPSIN TC 67710E 184 MG/DL (83-199)
[2017-05-21 10:35] LABS: ALBUMIN 3.5 G/DL (3.8-4.8); GAMMA GLOBULIN 0.9 G/DL (0.8-1.7); IGA SERUM 267 mg/dL (81-463); TIS TRANS IGA 1 U/mL (<4); TOTAL PROTEIN 6.2 G/DL (6.2-8.3)
[2017-05-21 12:29] LABS: ANA TITER 1:40 TITER (<1:40)
== END 2017-05-19 10:55 | disposition left against medical advice (07) | DRG 442 ==
LOC: C.EDB 11:08 → C.MS2W 14:12 → ENRESERV 15:36
PROVIDERS: ADMIT Internal Medicine; ATTEND Hospitalist
DX: K72.00 Acute and subacute hepatic failure without coma (principal); N39.0 Urinary tract infection, site not specified; R74.0 Nonspecific elevation of levels of transaminase and lactic acid dehydrogenase [LDH]; T42.0X5A Adverse effect of hydantoin derivatives, initial encounter; B96.20 Unspecified Escherichia coli [E. coli] as the cause of diseases classified elsewhere; F17.200 Nicotine dependence, unspecified, uncomplicated; R31.0 Gross hematuria; G40.909 Epilepsy, unspecified, not intractable, without status epilepticus; E78.5 Hyperlipidemia, unspecified; F32.9 Major depressive disorder, single episode, unspecified; F41.9 Anxiety disorder, unspecified; M81.0 Age-related osteoporosis without current pathological fracture; Z79.82 Long term (current) use of aspirin; Z79.899 Other long term (current) drug therapy; Z90.81 Acquired absence of spleen

== ENCOUNTER → 2017-05-21 | Outpatient (CLI) | payer OTHER ==
[~2017-05-21] MED LIST changes: +ALEN5SOL IM; -CIPR1TAB11 PO; +DIVA500T5 PO; -DLN100 PO; +DTRSR5 PO; -METR-163 PO; +ONDA4TAB65 PO; -OXYB5TAB74 PO
[2017-05-21 13:32] LABS: INR 1.1 (0.9-1.1)
[2017-05-21 13:39] LABS: HEMATOCRIT 42.5 % (37-47); MEAN CELL VOLUME 91.4 fL (80-100); MEAN CORPUSCULAR HEMOGLOBIN 32.3 pg (25-34); MEAN CORPUSCULAR HGB CONC 35.3 g/dl (32-36); MEAN PLATELET VOLUME 11.5 fL (7.4-10.4); PLATELET COUNT 288 K/uL (130-400); RED BLOOD COUNT 4.65 M/uL (4.2-5.4); WHITE BLOOD COUNT 14.41 K/uL (4.8-10.8)
[2017-05-21 13:50] LABS: BLOOD UREA NITROGEN 16 mg/dl (7-18); BUN/CREATININE RATIO 25.7 (10-20); CALCIUM 8.8 mg/dl (8.5-10.1); CARBON DIOXIDE 26 mmol/L (21-32); CHLORIDE 106 mmol/L (98-107); CREATININE 0.61 mg/dl (0.60-1.20); GLUCOSE 100 mg/dl (70-99); POTASSIUM 4.1 mmol/L (3.5-5.1); SODIUM 138 mmol/L (136-145)
[2017-05-21 13:55] LABS: ALB/GLOB RATIO 0.8 (0.9-2); ALKALINE PHOSPHATASE 188 U/L (45-117); ALT/SGPT 1125 U/L (12-78); AST/SGOT 818 U/L (15-37)
[2017-05-21 15:11] LABS: BASO ABS # 0.62 K/uL (0-0.2); BASOPHIL % 4.3 %; COMPLETE YES; ECHINOCYTES 2+; EOSINOPHIL % 5.2 %; GIANT PLATELETS 1+; HOWELL-JOLLY BODIES 1+; LARGE GRANULAR LYMPH ABSOLUTE 2.61 K/uL; LARGE GRANULAR LYMPHOCYTE % 18.1 %; LYMPH ABS # 3.47 K/uL (1.2-3.4); LYMPHOCYTE % 24.1 %; NEUTROPHILS % 43.1 %
== END | disposition home or self-care (01) ==
LOC: C.LAB 12:14
PROVIDERS: ATTEND Internal Medicine
DX: B17.9 Acute viral hepatitis, unspecified (principal)

== ENCOUNTER → 2017-05-27 | Outpatient (CLI) | payer OTHER ==
[2017-05-27 18:03] LABS: PROTHROMBIN TIME (PATIENT) 10.3 SECONDS (9.0-12.0)
== END | disposition home or self-care (01) ==
LOC: C.LABBFT 11:33
PROVIDERS: ATTEND Nurse Practitioner
DX: R74.0 Nonspecific elevation of levels of transaminase and lactic acid dehydrogenase [LDH] (principal)

== ENCOUNTER → 2017-06-26 | Outpatient (CLI) | payer OTHER ==
--- NOTE | 2017-06-26 14:29 | EEG Procedure Note ---
EEG Procedure Note Date of Service Jun 26, 2017. Start / End Times Start Time: 10:17 AM End Time: 10:37 AM Referring Physician Ben Lerma History This is a 52-year-old female with a history of epilepsy. Has been seizure-free for approximately 9 years. EEG for further evaluation and management of epilepsy and medications. Pertinent home medications: [facility] Home Medication List Scheduled Alendronate Sodium (Alendronate Sodium), 70 MG IM WK Aspirin (Aspirin Ec), 81 MG PO DAILY Citalopram Hydrobromide (Citalopram Hydrobromide), 10 MG PO DAILY Clobetasol Propionate (Temovate), 1 APPLN TOP BID Divalproex Sodium (Depakote Delay Rel), 500 MG PO BID Omeprazole (Prilosec), 20 MG PO DAILY Oxybutynin Chloride (Oxybutynin Chloride ER), 5 MG PO HS Scheduled PRN Albuterol Hfa (Ventolin Hfa), 2-4 PUFFS INH Q4H PRN for SOB/Wheezing Diphenoxylate/Atropine (Lomotil), 1 TAB PO QID PRN for Diarrhea Lorazepam (Ativan *), 0.5 MG PO DAILY PRN for Anxiety Ondansetron Hcl (Zofran), 1 TAB PO Q6H PRN for Nausea Description This is a 21 electrode EEG with a single channel dedicated to limited EKG. The electrodes were placed in accordance with the International 10-20 system. At the start of the recording the patient was in an awake state. Background was well organized and composed of symmetric mixed alpha and beta frequencies. There was a symmetric well-formed moderate amplitude 12 Hz posterior dominant rhythm that was reactive to eye opening and closure. Hyperventilation was not done. Intermittent photic stimulation at various frequencies produced no abnormalities. Drowsiness was indicated by loss of muscle artifact, slowing of the background rhythm, and vertex waves. There was no stage II sleep transients. Interpretation This is a normal awake and drowsy routine EEG. There was no electrographic seizures or epileptiform discharges. Clinical Correlation A normal EEG does not rule out epilepsy if there is a strong clinical suspicion.
== END | disposition home or self-care (01) ==
LOC: C.NEUR 10:05
PROVIDERS: ATTEND Psychiatry & Neurology Neurology
DX: G40.909 Epilepsy, unspecified, not intractable, without status epilepticus (principal)

== ENCOUNTER → 2018-01-22 | Outpatient (CLI) | payer OTHER ==
[~2018-01-22] MED LIST changes: +LDDP5 TD
== END | disposition home or self-care (01) ==
LOC: C.PATHSPEC 17:23
PROVIDERS: ATTEND Nurse Practitioner Family
DX: N39.46 Mixed incontinence (principal)